=== PATIENT | male | born 1985 | race American Indian/Alaskan Native ===

== ENCOUNTER 2016-07-26 12:06 | Emergency (ER) | payer OTHER ==
[2016-07-26] MEDS ORDERED: TESSALON PERLES PO ONE (16:38)
[2016-07-26] MEDS ORDERED: NORMODYNE IV ONE (16:39)
[2016-07-26] MEDS ORDERED: APRESOLINE IV ONE ×3 (16:39→19:29)
[2016-07-26] MEDS ORDERED: TYLENOL PO ONE (16:40)
[2016-07-26 17:01] LABS: Basophils % (Auto) 1.4 % (0.0-1.8); Eosinophils % (Auto) 3.8 % (0.0-4.3); Hematocrit 40.9 % (35.5-45.6); Hemoglobin 13.4 gm/dl (11.8-15.2); Mean Corpuscular HGB Conc 33 % (32-34); Mean Corpuscular Hemoglobin 29 pg (28-32); Mean Corpuscular Volume 88 fl (84-94); Platelet Count 275 K/mm3 (140-440); Red Blood Count 4.67 M/mm3 (3.65-5.03); Red Cell Distribution Width 14.4 % (13.2-15.2); White Blood Count 5.9 K/mm3 (4.5-11.0)
[2016-07-26 17:12] LABS: Anion Gap 22 mmol/L; Blood Urea Nitrogen 19 mg/dL (9-20); Carbon Dioxide 20 mmol/L (22-30); Chloride 102.3 mmol/L (98-107); Glucose 135 mg/dL (75-100); Sodium 140 mmol/L (137-145)
[2016-07-26] MEDS ORDERED: DUONEB 0.5 MG-3 MG/3 ML SOLN IH ONE (17:40)
[2016-07-26] MEDS ORDERED: ZITHROMAX PO ONE (17:46)
--- NOTE | 2016-07-26 17:48 | Emergency Department Report ---
HPI - General Chief Complaint: High BP Time Seen by Provider: 07/26/16 16:36 - HPI HPI: The patient is a 31-year-old male with a history of uncontrolled hypertension, who presents for evaluation of dyspnea. The patient reports progressive dyspnea for the past one to 2 days, severe for the past day, exacerbated with lying flat or exertion, and improved with sitting up and rest. He also reports a nonproductive cough for the past 5-6 days, moderate to severe, and associated with generalized myalgias. The patient shares that his roommate experienced a similar dry nonproductive cough, myalgias, and ill-filling one week ago. The patient denies fever, chest pain, syncope, hemoptysis, unilateral leg swelling, recent immobilization, history of DVT or PE, hx cancer, or history of cocaine use. The patient admits to greater than 10 pack years of tobacco use. ED Past Medical Hx - Past Medical History Hx Hypertension: Yes - Surgical History Past Surgical History?: No - Social History Smoking Status: Former Smoker Substance Use Type: None - Medications Home Medications: Home Medications Medication Instructions Recorded Confirmed Last Taken Type ALBUTEROL Inhaler [ProAir HFA 2 puff IH QID PRN #1 inhalation 07/26/16 Unknown Rx Inhaler] Azithromycin [Zithromax Z-AMILCAR] 250 mg PO QDAY #6 tablet 07/26/16 Unknown Rx Benzonatate [Tessalon Perles] 100 mg PO Q8HR #14 capsule 07/26/16 Unknown Rx Furosemide [Lasix] 20 mg PO QDAY #31 tablet 07/26/16 Unknown Rx Lisinopril [Zestril TAB] 5 mg PO QDAY #31 tablet 07/26/16 Unknown Rx ED Review of Systems ROS: Stated complaint: FLU-LIKE SYMPTOMS Other details as noted in HPI Constitutional: denies: fever ENT: denies: throat or neck pain Respiratory: reports cough, shortness of breath Cardiovascular: denies: chest pain Endocrine: denies unexplained weight loss or gain Gastrointestinal: denies: abdominal pain, nausea Genitourinary: denies: dysuria Musculoskeletal: denies: leg swelling Skin: denies: rash Neurological: denies: headache Hematological/Lymphatic: denies: easy bleeding or easy bruising Psych: denies sadness or hopelessness Physical Exam - Physical Exam Vital Signs: Vital Signs 07/26/16 07/26/16 07/26/16 13:08 16:35 16:40 Temperature 97.4 F L Pulse Rate 105 H 104 H 105 H Respiratory 24 24 23 Rate Blood Pressure 185/136 182/138 Blood Pressure [Right] O2 Sat by Pulse 100 98 97 Oximetry 07/26/16 07/26/16 07/26/16 16:50 16:55 17:00 Temperature 98.7 F Pulse Rate 108 H 105 H 95 H Respiratory 35 H 24 28 H Rate Blood Pressure 182/138 153/113 Blood Pressure 182/138 [Right] O2 Sat by Pulse 99 98 97 Oximetry 07/26/16 07/26/16 17:10 17:21 Temperature Pulse Rate 96 H Respiratory 32 H 18 Rate Blood Pressure 153/113 Blood Pressure [Right] O2 Sat by Pulse 97 98 Oximetry Physical Exam: General: well-nourished, well-developed, no acute distress Head: Normocephalic, atraumatic Eyes: normal sclera ENT: Mucous membranes are pink and moist Neck: trachea midline, neck supple, No neck stiffness, no cervical adenopathy Respiratory: Mildly diminished bibasilar breath sounds and rales present, no costal retractions, no respiratory distress at this time Cardio: S1 and S2 present, no murmurs, rubs, gallops, capillary refill is brisk Abdomen: Normoactive bowel sounds, soft abdomen, no rigidity, no guarding or rebound tenderness Chest WALL/Back: No tenderness to palpation of the chest wall, no CVA tenderness with percussion Musc: No pitting edema Skin: No rash Neuro: no facial drooping, normal speech Psych: Normal affect ED Course Vital Signs 07/26/16 07/26/16 07/26/16 13:08 16:35 16:40 Temperature 97.4 F L Pulse Rate 105 H 104 H 105 H Respiratory 24 24 23 Rate Blood Pressure 185/136 182/138 Blood Pressure [Right] O2 Sat by Pulse 100 98 97 Oximetry 07/26/16 07/26/16 07/26/16 16:50 16:55 17:00 Temperature 98.7 F Pulse Rate 108 H 105 H 95 H Respiratory 35 H 24 28 H Rate Blood Pressure 182/138 153/113 Blood Pressure 182/138 [Right] O2 Sat by Pulse 99 98 97 Oximetry 07/26/16 07/26/16 17:10 17:21 Temperature Pulse Rate 96 H Respiratory 32 H 18 Rate Blood Pressure 153/113 Blood Pressure [Right] O2 Sat by Pulse 97 98 Oximetry ED Medical Decision Making - Lab Data Result diagrams: 07/26/16 16:41 07/26/16 16:41 - Medical Decision Making The patient was seen and examined by myself. The patient is placed on a telemetry monitor and continuous pulse ox. On initial evaluation, the patient was found to be in no distress. Evaluation orders were placed. EKG was negative for findings suggestive of acute cardiac infarct. The patient is given Tessalon Perles for their cough, Tylenol for pain, and a DuoNeb breathing treatment. The patient is given IV hydralazine for treatment of elevated blood pressure. Chest x-ray exhibits cardiomegaly and mild central pulmonary vascular congestion , suggestive of CHF. X-ray also demonstrates potential interstitial infiltrates vs. lung scarring. The patient was given a tablet of azithromycin for coverage of potential atypical pneumonia. Lab results reveal elevated BNP 7000, and otherwise were not concerning including normal WBC and renal function. As patient was found to have pulmonary vascular congestion and elevated BNP, with a history of uncontrolled hypertension, evaluation findings are highly suggestive of new diagnosis of congestive heart failure. The patient is given a tablet of nitroglycerin, Lasix, and additional doses of IV hydralazine for his elevated blood pressure. The patient was reevaluated and reported that their symptoms were markedly improved. On reexamination the patient is found to have normal respiratory rate and O2 sat on pulse oximetry, with no costal retractions or diminishment of breath sounds on auscultation. Additionally, the patient's blood pressure was found to decrease below range concerning for hypertensive emergency. The patient is stable for discharge with outpatient follow-up. He states that he would like to be discharged home. The patient is given follow-up and return instructions, including to follow-up with the referral branch coordinator. The patient expressed understanding and agreed with the plan. The patient is discharged in stable condition. Critical care attestation.: If time is entered above; I have spent that time in minutes in the direct care of this critically ill patient, excluding procedure time. ED Disposition Clinical Impression: Upper respiratory infection, acute, Hypertensive urgency Congestive heart failure, acute Qualifiers: Congestive heart failure type: systolic Qualified Code(s): I50.21 - Acute systolic (congestive) heart failure Disposition: DISCHARGED TO HOME OR SELFCARE Is pt being admited?: No Does the pt Need Aspirin: No Condition: Stable Instructions: Heart Failure (ED), Chronic Hypertension (ED), Upper Respiratory Infection (ED) Referrals: [facility] [Provider Group] - 3-5 Days BARRY XAVIER MD [Staff Physician] - 3-5 Days Time of Disposition: 17:47
[2016-07-26] MEDS ORDERED: NITROSTAT SL ONE (17:56)
[2016-07-26] MEDS ORDERED: LASIX PO ONE (19:19)
[2016-07-26 20:17] VITALS: BP 158/117
--- NOTE | 2016-07-27 08:49 | XRay Report ---
AP CHEST : 07/26/16 12:06:00 CLINICAL: Chest pain. COMPARISON:None FINDINGS: Cardiomegaly and central vascular congestion. Mild patchy opacities in the right lung base. The rest the lungs are clear. The bones and soft tissues are unremarkable. IMPRESSION: Mild CHF and mild pulmonary edema in the right lung base.
== END 2016-07-26 19:25 | disposition home or self-care (01) ==
LOC: ED 12:06
DX: J06.9 Acute upper respiratory infection, unspecified (principal); I50.21 Acute systolic (congestive) heart failure; I10 Essential (primary) hypertension; Z87.891 Personal history of nicotine dependence
CPT/HCPCS: 36415; 71010; 80048; 83880; 85025; 94640; 96374; 96375; 96376; 99285; J0360